=== PATIENT | male | born 1980 | race Caucasian/White ===

== ENCOUNTER 2016-04-23 10:46 | Emergency (ER) | payer OTHER ==
[2016-04-23 10:59] VITALS: TEMP 97.7
[2016-04-23] MEDS ORDERED: HYDROCODONE/APAP 5/325 TAB PO ONE (11:37)
--- NOTE | 2016-04-23 12:48 | MR ---
MRI of the Cervical Spine (Without Contrast) History: Neck pain, right arm weakness Technique: Sagittal T1, FSE T2 and STIR images. Axial FSE T2 and GRE images. Findings: The craniocervical junction is normal. Cervical alignment is anatomic. The cervical neural canal is congenitally normal in size. Vertebral bodies maintain normal bone marrow signal. Disk spac es maintain normal height and hydration. C2-C3: Normal C3-C4: Normal C4-C5: There is a small eccentric to the right of midline, disk protrusion that touches the ventral a spect of the cord but does not cause cord flattening or displacement. Both neural foramen are widely patent. C5-C6: There is a right lateral soft disk protrusion associated with an annular tear as well as a santoyo perior marginal osteophyte off of C5 that causes right-sided cord flattening and moderate right later al recess and medial foraminal stenosis. Left uncovertebral joint spurring also causes moderate siddhartha inal stenosis but is not associated with central canal encroachment. C6-C7: There is an eccentric to the left of midline small disk bulge or protrusion associated with a horizontal annular tear that causes a mild ventral extradural defect on the thecal sac. There is mild encroachment of the left foramen secondary to uncovertebral joint spurring. C7-T1: Normal Impression: Multilevel degenerative change.Right arm weakness may be related to a right-sided disk pr otrusion at C5-C6. Please see above. Results called and discussed with ARMINDA Tran, at 04/23/2016 12:46
[2016-04-23] MEDS ORDERED: methylPREDNISolone SOD SUCC 125 MG in D5W 100 ML IV ONE (13:22)
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
[2016-04-23 15:13] VITALS: BP 119/66; PULSE 56; RESP 16; O2SAT 98
== END 2016-04-23 15:13 | disposition home or self-care (01) ==
DX: M50.20 Other cervical disc displacement, unspecified cervical region (principal)
CPT/HCPCS: 96365; J2930